=== PATIENT | male | born 1965 | race Hispanic/Latino ===

== ENCOUNTER 2024-05-21 19:43 | Emergency (ER) | payer SELFPAY ==
[~2024-05-21] VITALS: Ht 182.9 cm; Wt 79.8 kg
[2024-05-21 20:34] VITALS: TEMP 97.2
[2024-05-21 20:42] VITALS: PULSE 72; RESP 16; O2SAT 100
== END 2024-05-21 20:51 | disposition home or self-care (01) ==
LOC: ER 20:39
DX: H61.23 Impacted cerumen, bilateral (principal)
CPT/HCPCS: 99282